=== PATIENT | female | born 2000 | race Caucasian/White ===

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

== ENCOUNTER 2022-06-04 13:41 | Emergency (ER) | payer BC ==
[~2022-06-04] VITALS: Ht 165 cm; Wt 125.0 kg
[~2022-06-04 13:41] MED LIST changes: +HYDR50CA3 PO; +NITR-65 PO
[2022-06-04 14:15] VITALS: BP 144/89
--- NOTE | 2022-06-04 14:36 | ED Headache ---
General Chief Complaint: Head/Cervical Problems Stated Complaint: BLURRED VISION Nursing Triage Note: ARRIVED VIA AMBULATORY TO [facility] WITH COMPLAINTS OF MIGRAINE AND BLURRED VISION STARTING THIS AM. PT STATES HER VISION IS NORMAL AT THIS TIME AND HAS NOT TAKEN ANY MEDS FOR HER MIGRAINE. Source: patient Exam Limitations: no limitations History of Present Illness Date Seen by Provider: Jun 04, 2022 Time Seen by Provider: 14:33 Initial Comments Patient is a 22-year-old female who presents ED with frontal head pain and blurry vision bilateral. Symptoms started around 9:00 today when she woke up. Started having this frontal head pain described as pressure with bilateral blurry vision. She states it feels like her vision goes in and out and becomes dark bialteral. Denies of any floaters or complete loss of her vision. She denies of any weakness on one side, facial droop, slurred speech, vomiting or the worst headache of her life. Denies of any recent travels or surgeries. She states she has been having intermittent symptoms over the past week. Patient saw ophthalmology 2 weeks ago with a negative work-up. She denies of any fever, ear ringing, hearing loss, n,v,v, sore throat, neck pain, chest pain, shortness of breath. Denies of any recent travels. She does wear glasses. Allergies and Home Medications Allergies Coded Allergies: Penicillins (Verified Allergy, Unknown, 10/28/16) Patient Home Medication List Home Medication List Reviewed: Yes Azithromycin (Zithromax) 200 Mg/5 Ml Susp.recon, 1 TSP PO DAILY Prescribed by: MATIAS GONZALEZ on 10/31/16 1039 Dexamethasone (Dexamethasone) 0.5 Mg/5 Ml Solution, 2 TSP PO DAILY Prescribed by: MATIAS GONZALEZ on 10/31/16 1039 Hydrocodone Bit/Homatrop Me-Br (Hydrocodone Compound Syrup) 120 Ml Syrup, 2-2.5 TSP PO Q4H PRN for PAIN Prescribed by: MATIAS GONZALEZ on 10/31/16 1039 Hydroxyzine Pamoate (Hydroxyzine Pamoate) 50 Mg Capsule, 50 MG PO Q6H PRN for ANXIETY Prescribed by: JAKY MTZ on 03/01/20 1456 Nitrofurantoin Monohyd/M-Cryst (Macrobid 100 mg Capsule) 100 Mg Capsule, 1 TAB PO BID Prescribed by: JAKY MTZ on 03/01/20 2736 Tetracaine (Tetracaine Suckers) Sucker Ea, 3 EA MT UD PRN for PAIN Prescribed by: MATIAS GONZALEZ on 10/31/16 1039 Review of Systems Review of Systems Constitutional: No chills, No diaphoresis, No malaise, No weakness Eyes: Blurred Vision; Denies Inflammation, Denies Photophobia, Denies Shadows Ears, Nose, Mouth, Throat: denies ear pain, denies ear discharge Respiratory: No cough, No dyspnea on exertion Cardiovascular: No chest pain Gastrointestinal: No abdominal pain, No diarrhea, No nausea, No vomiting Genitourinary: No decreased output, No discharge Musculoskeletal: No back pain, No joint pain Skin: No change in color, No change in hair/nails All Other Systems Reviewed Negative Unless Noted: Yes Past Rprievp-Vcylre-Cttzkl Hx Patient Social History Tobacco Use?: No Use of E-Cig and/or Vaping dev: Yes Substance use?: Yes Substance type: Marijuana Alcohol Use?: No Immunizations Up To Date COVID19 Vaccine Clinic Physician Director: MODERNA Seasonal Allergies Seasonal Allergies: No Past Medical History Surgeries: Yes (WISDOM TEETH) Adenoidectomy, Tonsillectomy Respiratory: No Cardiac: No Neurological: Yes ("TICS-TOURETTE'S" DX 02/2020; PSUEDOSEIZURES BEGINNING 02/29/20) Reproductive Disorders: Yes Female Reproductive Disorders: Menstrual Problems, 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 0.0oz. 99.491686jv; 45.00 BMI Method: General Appearance: WD/WN, no apparent distress HEENT: PERRL/EOMI, normal ENT inspection, TMs normal, pharynx normal Neck: non-tender, full range of motion, supple, normal inspection Cardiovascular: regular rate, rhythm, no edema, no gallop, no JVD Respiratory: chest non-tender, lungs clear, normal breath sounds, no respiratory distress, no accessory muscle use Gastrointestinal: normal bowel sounds, non tender, soft, no organomegaly Back: normal inspection, no CVA tenderness Extremities: normal range of motion, non-tender, normal inspection, no pedal edema Crainal Nerves: normal hearing, normal speech, PERRL Coordination/Gait: normal finger to nose Motor/Sensory: no motor deficit, no sensory deficit, no pronator drift Skin: normal color, warm/dry Progress/Results/Core Measures Results/Orders My Orders Orders - AV PRABHAKAR Ct Head Wo (06/04/22 14:32) Ibuprofen Tablet (Motrin Tablet) (06/04/22 14:45) Medications Given in ED Current Medications Medications Dose Ordered Sig/Cosmo Route Start Time Stop Time Status Last Admin Dose Admin Ibuprofen 800 mg ONCE ONCE PO 06/04/22 14:45 06/04/22 14:46 DC 06/04/22 14:39 800 MG Vital Signs/I&O 06/04/22 14:15 Temp 36.3 Pulse 90 Resp 16 B/P (MAP) 144/89 (107) Pulse Ox 100 O2 Delivery Room Air Blood Pressure Mean: 107 Departure Communication (PCP) Patient states the blurry vision has improved but does have frontal headache. Denies taking anything for pain. Was given ibuprofen with improvement. Neuro exam unremarkable. No neurological red flag findings. NIH 0. CT scan negative for mass, hemorrhaging of the head. Patient has had a negative work-up with ophthalmology 2 weeks ago. Due to her current symptoms over the past month recommend outpatient follow-up for further evaluation. May warrant a outpatient MRI for any other acute abnormality such as a smaller lesion, MS. patient agrees with plan of action. Patient with a stable gait here. Impression Primary Impression: Blurry vision Additional Impression: Headache Disposition: 01 HOME, SELF-CARE Condition: Stable Departure-Patient Inst. Decision time for Depature: 15:08 Referrals: [facility]/PAT (PCP) Primary Care Physician MATIAS GONZALEZ APRN (Family) Primary Care Physician Patient Instructions: Headache, Adult (DC) Add. Discharge Instructions: Recommend follow-up your PCP for further evaluation. Continue with Tylenol ibuprofen for headache All discharge instructions reviewed with patient and/or family. Voiced understanding. AV PRABHAKAR Jun 04, 2022 14:35
[2022-06-04] MEDS ORDERED: IBUPROFEN 800 MG (MOTRIN) TAB PO ONE (14:45)
--- NOTE | 2022-06-04 14:51 | Diagnostic Imaging Report ---
INDICATION: Blurry vision. TECHNIQUE: Routine non contrast-enhanced axial images were obtained from the skull base to the vertex. Auto Exposure Controls were utilized during the CT exam to meet ALARA standards for radiation dose reduction COMPARISON: 03/01/2020. FINDINGS: The ventricles and cortical sulci are normal in size and contour. There is no midline shift or mass-effect. No acute intra-axial hemorrhage is seen. There are no abnormal areas of increased or decreased density to suggest acute hemorrhage or edema. No extra-axial masses or collections are present. The bony calvarium is intact. The visualized paranasal sinuses are unremarkable. The mastoid air cells are clear. IMPRESSION: 1. No acute intracranial abnormality. No CT evidence of mass, acute infarct or intracranial hemorrhage. Dictated by: Dictated on workstation # [id number]
== END 2022-06-04 15:11 | disposition home or self-care (01) ==
LOC: EDUNIT# 13:41 → ER 13:43
DX: H53.8 Other visual disturbances (principal); R51.9 Headache, unspecified; E66.9 Obesity, unspecified; F17.290 Nicotine dependence, other tobacco product, uncomplicated; Z68.42 Body mass index [BMI] 45.0-49.9, adult
CPT/HCPCS: 70450